=== PATIENT | female | born 1985 | race Caucasian/White ===

== ENCOUNTER → 2019-07-13 | Outpatient (CLI) | payer OTHER | LOC: M PLALAB 11:10 | PROVIDERS: ATTEND Advanced Practice Midwife | DX: Z36.89 Encounter for other specified antenatal screening (principal) ==

== ENCOUNTER → 2019-07-13 | Outpatient (REF) | payer OTHER | LOC: M SFHCWAGY 13:32 | PROVIDERS: ATTEND Advanced Practice Midwife | DX: Z36.85 Encounter for antenatal screening for Streptococcus B (principal) ==

== ENCOUNTER 2019-08-11 03:01 | Inpatient (IN) | payer OTHER ==
[2019-08-11] MEDS ORDERED: MEASLES,MUMPS,RUBELLA VACCINE INJ (MMR-II) (90707) SC SCH (04:45)
[2019-08-11] MEDS ORDERED: LIDOCAINE 1% MDV 20ML VIAL SC ONE (04:45)
[2019-08-11] MEDS ORDERED: ACETAMINOPHEN TAB 650MG DOSE (2X325MG) PO PRN (04:45)
[2019-08-11] MEDS ORDERED: IBUPROFEN 600 MG TAB PO PRN (04:45)
[2019-08-11] MEDS ORDERED: METHYLERGONOVINE MALEATE 0.2 MG TAB PO PRN (04:45)
[2019-08-11] MEDS ORDERED: IBUPROFEN 800 MG TAB PO PRN (04:45)
[2019-08-11] MEDS ORDERED: ANUSOL HC CREAM 30GM TOP PRN (04:45)
[2019-08-11] MEDS ORDERED: OXYTOCIN INJ 10 UNITS/ML VIAL (J2590) IM ONE (04:45)
[2019-08-11] MEDS ORDERED: DIBUCAINE 1% OINTMENT 30GM TOP PRN (04:45)
[2019-08-11] MEDS ORDERED: RHOGAM 300 MCG (1500 IU) INJ (J2790) IM SCH (04:45)
[2019-08-11] MEDS ORDERED: ACETAMINOPHEN 500 MG TAB PO PRN (04:45)
[2019-08-11] MEDS ORDERED: LIDOCAINE 1% MDV 20ML VIAL INFIL ONE (04:45)
[2019-08-11 06:26] VITALS: BP 127/72
--- NOTE | 2019-08-11 07:44 | DN ---
DATE: 08/11/2019 Elham is a 34-year-old 3, para 2-0-1-2 now who was admitted to labor and delivery in second stage labor. She reached full dilation at 0312. She had assisted rupture of membranes for a small amount of clear odorless fluid at 0317. She pushed to a normal spontaneous vaginal delivery of a live female infant in occiput anterior (OA) position with restitution to right occiput transverse (ROT) position at 0330. There was no nuchal cord. The shoulders delivered spontaneously and the corpus immediately followed. [place] was placed on maternal abdomen crying and active. The cord was clamped times two once pulsations ceased and cut by the father of the baby under my direction. A spontaneous expulsion of an intact placenta with three-vessel cord by Monae mechanism was at 0342. Uterine hemostasis achieved with IV Pitocin rapid infusion and uterine fundal massage. Estimated blood loss 300 mL. Perineum and vagina inspected noted to have a second-degree midline laceration. Laceration was infiltrated with 1% lidocaine and repaired with #3-0 Rapide in the usual fashion. The family have named their daughter Karley Jesus. Their daughter weight 3980 grams, 8 pounds 12 ounces, 8 an d9. The mom is going to breastfeed her daughter. At the close of delivery lap counts, needle counts, instrument counts were correct and verified.
--- NOTE | 2019-08-11 07:49 | HPE ---
DATE OF ADMISSION: 08/11/2019 HISTORY OF PRESENT ILLNESS: Elham is a 34-year-old 3, para 1-0-1-1 now, who is admitted to labor and delivery in second stage labor. She is 39-5/7 weeks with an estimated date of confinement (EDC) of 08/13/2019 based on last menstrual period and confirmed by first trimester ultrasound. Her care was initiated in [place] with a transfer of care to [facility] in the third trimester. Her course was complicated by advanced maternal age. OBSTETRICAL HISTORY: August 2017 - spontaneous vaginal delivery for an 8 pound 11 ounce male at 41 weeks. OBSTETRIC LABS: O positive. Antibody screen negative. Rubella immune. Hepatitis B surface antigen negative. HIV negative. Early 1-hour glucose 105. Urine culture no growth. VDRL negative. Gonorrhea and chlamydia negative. Group B Streptococcus (GBS) negative. PAST MEDICAL HISTORY: Seasonal allergies. Abnormal Pap smear. Obesity. SURGERIES: [place] tooth extraction. Colposcopy. Diagnostic laparoscopy. FAMILY HISTORY: Throat cancer, colon cancer, Alzheimer's disease, heart disease, skin cancer, thyroid cancer, tonsil cancer, stroke, atrial fibrillation, seizures and hypercholesterolemia. SOCIAL HISTORY: The patient is . She is a nonsmoker. She denies alcohol or drug use. She does report a history of positive HPV. Denies history of abuse physical, sexual and emotional. ALLERGIES: 1. SULFA. CURRENT MEDICATIONS: - vitamin OBJECTIVE: Upon arrival, the patient had a strong urge to push. heart rate is 140. Sterile vaginal exam: Complete dilation. Intact membranes, +2 station. ASSESSMENT: Interim at 39-5/7 weeks. heart rate is 140. PLAN: Admit the patient to labor and delivery. I anticipate spontaneous vaginal delivery.
[2019-08-11] MEDS: DOCUSATE SODIUM 100 MG CAP PO PRN ×2 (08:21→21:20)
[2019-08-11] MEDS: PRENATAL VITAMINS CHEWABLE TABLET PO SCH (08:22)
[2019-08-11 11:22] VITALS: BP 126/66
[2019-08-11 18:04] VITALS: BP 130/80
[2019-08-12 05:05] VITALS: BP 129/67
[2019-08-12] MEDS: PRENATAL VITAMINS CHEWABLE TABLET PO SCH (09:43)
[2019-08-12 17:32] VITALS: BP 130/60
== END 2019-08-12 18:42 | disposition home or self-care (01) | DRG 807 ==
LOC: M LDO 03:01 → M LDI 03:17 → M OBS 05:38
PROVIDERS: ADMIT Advanced Practice Midwife; ATTEND Advanced Practice Midwife
PROC: 10E0XZZ Delivery of Products of Conception, External Approach (ICD-10-PCS; principal; 2019-08-11)
PROC: 0KQM0ZZ Repair Perineum Muscle, Open Approach (ICD-10-PCS; 2019-08-11)
PROC: 10907ZC Drainage of Amniotic Fluid, Therapeutic from Products of Conception, Via Natural or Artificial Opening (ICD-10-PCS; 2019-08-11)
DX: O70.1 Second degree perineal laceration during delivery (principal); Z37.0 Single live birth; Z3A.39 39 weeks gestation of pregnancy

== ENCOUNTER → 2021-06-10 | Outpatient (REF) | payer OTHER | LOC: M PLALAB 10:20 | PROVIDERS: ATTEND Advanced Practice Midwife | DX: Z53.20 Procedure and treatment not carried out because of patient's decision for unspecified reasons (principal) ==

== ENCOUNTER → 2021-07-09 | Outpatient (CLI) | payer OTHER ==
[2021-07-09 10:38] LABS: EOS % 1.6 % (0.0-3.0); HEMOGLOBIN 12.5 g/dl (12.0-15.5); LYMPH % 27.3 % (24.0-44.0); MEAN CORPUSCULAR HEMOGLOBIN 29.9 pg (27.0-33.0); MEAN CORPUSCULAR HGB CONC 33.8 g/dl (32.0-36.5); MEAN CORPUSCULAR VOLUME 88.5 fl (80.0-96.0); MONO % 6.3 % (2.0-8.0); NEUTROPHILS % 64.2 % (36.0-66.0); PLATELET COUNT, AUTOMATED 236 10^3/uL (150-450); RED BLOOD COUNT 4.18 10^6/uL (4.00-5.40)
[2021-07-09 10:39] LABS: BASO % 0.3 % (0.0-1.0); EOS # 0.1 10^3/uL (0.0-0.5); LYMPH # 2.2 10^3/uL (1.5-5.0); MONO # 0.5 10^3/uL (0.0-0.8); NEUTROPHILS # 5.1 10^3/uL (1.5-8.5)
[2021-07-09 11:53] LABS: HEPATITIS C VIRUS ABY INDEX < 0.0 INDEX (<0.8); HIV 1&2 SCREEN CENTAUR NEGATIVE (NEGATIVE)
[2021-07-09 13:09] LABS: GC DNA AMPLIFICATION NEGATIVE (NEGATIVE)
== END ==
LOC: M PLALAB 08:04
PROVIDERS: ATTEND Advanced Practice Midwife
DX: O09.529 Supervision of elderly multigravida, unspecified trimester (principal); Z3A.00 Weeks of gestation of pregnancy not specified

== ENCOUNTER → 2021-08-27 | Outpatient (CLI) | payer OTHER | LOC: M WHC 07:58 | PROVIDERS: ATTEND Advanced Practice Midwife | DX: Z34.92 Encounter for supervision of normal pregnancy, unspecified, second trimester (principal); Z3A.20 20 weeks gestation of pregnancy ==

== ENCOUNTER → 2021-09-25 | Outpatient (CLI) | payer OTHER | LOC: M WHC 07:58 | PROVIDERS: ATTEND Specialist | DX: Z34.82 Encounter for supervision of other normal pregnancy, second trimester (principal); Z3A.24 24 weeks gestation of pregnancy ==

== ENCOUNTER → 2021-10-15 | Outpatient (CLI) | payer OTHER ==
[2021-10-15 15:14] LABS: GC DNA AMPLIFICATION NEGATIVE (NEGATIVE)
== END ==
LOC: M PLALAB 08:39
PROVIDERS: ATTEND Specialist
DX: Z34.82 Encounter for supervision of other normal pregnancy, second trimester (principal)

== ENCOUNTER → 2021-10-15 | Outpatient (CLI) | payer OTHER ==
[2021-10-15 13:54] LABS: HEMATOCRIT 36.8 % (36.0-47.0); MEAN CORPUSCULAR HEMOGLOBIN 28.8 pg (27.0-33.0); MEAN CORPUSCULAR HGB CONC 32.6 g/dl (32.0-36.5); MEAN CORPUSCULAR VOLUME 88.2 fl (80.0-96.0); PLATELET COUNT, AUTOMATED 223 10^3/uL (150-450); RED BLOOD COUNT 4.17 10^6/uL (4.00-5.40); WHITE BLOOD COUNT 11.7 10^3/uL (4.0-10.0)
== END ==
LOC: M PLALAB 08:37
PROVIDERS: ATTEND Advanced Practice Midwife
DX: O09.529 Supervision of elderly multigravida, unspecified trimester (principal); Z3A.00 Weeks of gestation of pregnancy not specified

== ENCOUNTER → 2021-12-27 | Outpatient (REF) | payer OTHER | LOC: M PLALAB 08:08 | PROVIDERS: ATTEND Specialist | DX: Z36.85 Encounter for antenatal screening for Streptococcus B (principal) ==

== ENCOUNTER 2022-01-09 07:50 | Inpatient (IN) | payer OTHER ==
[~2022-01-09] VITALS: Ht 170.2 cm; Wt 103.0 kg
[2022-01-09] VITALS (12 sets, daily range): BP systolic 114–153; BP diastolic 69–99
[2022-01-09] MEDS ORDERED: MULTTAB20 PO (08:27)
[2022-01-09] MEDS ORDERED: ZYRTTAB8 PO (08:27)
[2022-01-09] MEDS ORDERED: HOME MED LIST COMPLETE! XX SCH (08:30)
[2022-01-09] MEDS: PRENATAL VITAMINS CHEWABLE TABLET PO SCH (09:00)
[2022-01-09 09:06] LABS: HEMATOCRIT 39.1 % (36.0-47.0); HEMOGLOBIN 13.2 g/dl (12.0-15.5); MEAN CORPUSCULAR HEMOGLOBIN 28.9 pg (27.0-33.0); MEAN CORPUSCULAR HGB CONC 33.8 g/dl (32.0-36.5); MEAN CORPUSCULAR VOLUME 85.6 fl (80.0-96.0); PLATELET COUNT, AUTOMATED 208 10^3/uL (150-450); RED BLOOD COUNT 4.57 10^6/uL (4.00-5.40); WHITE BLOOD COUNT 11.1 10^3/uL (4.0-10.0)
[2022-01-09] MEDS ORDERED: OXYTOCIN DRIP 30 UNITS in IV 1 EA IV PRN (09:10)
[2022-01-09] MEDS ORDERED: LR 1,000 ML IV SCH (09:10)
[2022-01-09] MEDS ORDERED: LIDOCAINE 1% MDV 20ML VIAL As Ordered ONE (10:30)
[2022-01-09] MEDS ORDERED: LIDOCAINE 1% MDV 20ML VIAL SC ONE (10:35)
[2022-01-09] MEDS ORDERED: IBUPROFEN 800 MG TAB PO PRN (10:50)
[2022-01-09] MEDS ORDERED: OXYTOCIN DRIP 30 UNITS in IV 1 EA IV ONE (10:50)
[2022-01-09] MEDS ORDERED: DIBUCAINE 1% OINTMENT 30GM TOP PRN (10:50)
[2022-01-09] MEDS ORDERED: ACETAMINOPHEN 500 MG TAB PO PRN (10:50)
[2022-01-09] MEDS ORDERED: ACETAMINOPHEN TAB 650MG DOSE (2X325MG) PO PRN (10:50)
[2022-01-09] MEDS ORDERED: METHYLERGONOVINE MALEATE 0.2 MG TAB PO PRN (10:50)
[2022-01-09] MEDS ORDERED: RHOGAM 300 MCG (1500 IU) INJ (J2790) IM SCH (10:50)
[2022-01-09] MEDS ORDERED: DOCUSATE SODIUM 100MG CAPSULE PO PRN (10:50)
[2022-01-09] MEDS: IBUPROFEN 600MG TAB PO PRN ×2 (11:42→11:46)
[2022-01-10 06:00] VITALS: BP 125/73
[2022-01-10] MEDS: PRENATAL VITAMINS CHEWABLE TABLET PO SCH (07:51)
[2022-01-11] MEDS ORDERED: MEASLES,MUMPS,RUBELLA VACCINE INJ (MMR-II) (90707) SC.IMMUN ONE (09:00)
== END 2022-01-10 11:55 | disposition home or self-care (01) | DRG 807 ==
LOC: M LDO 07:50 → M LDI 08:22 → M OBS 12:26
PROVIDERS: ADMIT Specialist; ATTEND Specialist
PROC: 10E0XZZ Delivery of Products of Conception, External Approach (ICD-10-PCS; principal; 2022-01-09)
PROC: 0KQM0ZZ Repair Perineum Muscle, Open Approach (ICD-10-PCS; 2022-01-09)
PROC: 10907ZC Drainage of Amniotic Fluid, Therapeutic from Products of Conception, Via Natural or Artificial Opening (ICD-10-PCS; 2022-01-09)
DX: O70.1 Second degree perineal laceration during delivery (principal); Z37.0 Single live birth; Z3A.39 39 weeks gestation of pregnancy

== ENCOUNTER 2024-08-19 06:39 | Day surgery (SDC) | payer OTHER ==
[~2024-08-19] VITALS: Ht 170.2 cm; Wt 91.2 kg
[~2024-08-19 06:39] MED LIST: MULTTAB20 PO; ZYRTTAB8 PO
[2024-08-19] MEDS ORDERED: LIDOCAINE 2% 100MG/5ML SDV (FOR ANES.) As Ordered ONE (07:26)
[2024-08-19] MEDS ORDERED: propofoL 200 MG/20 ML VIAL As Ordered ONE (07:26)
[2024-08-19 07:56] VITALS: TEMP 96.8
[2024-08-19 08:15] VITALS: BP 127/77; O2SAT 100
== END 2024-08-19 08:24 | disposition home or self-care (01) ==
LOC: M OPP 06:39
PROVIDERS: ATTEND Surgery
DX: Z12.11 Encounter for screening for malignant neoplasm of colon (principal); K57.30 Diverticulosis of large intestine without perforation or abscess without bleeding; Z80.0 Family history of malignant neoplasm of digestive organs; Z88.2 Allergy status to sulfonamides; Z79.899 Other long term (current) drug therapy